=== PATIENT | female | born 1970 | race Caucasian/White ===

== ENCOUNTER → 2017-04-11 13:25 | Outpatient (POV) | payer OTHER, SELFPAY | PROVIDERS: Visit Provider Nurse Practitioner Acute Care | DX: Z00.00 Encounter for general adult medical examination without abnormal findings (principal) ==

== ENCOUNTER → 2017-08-15 13:10 | Outpatient (POV) | payer OTHER, SELFPAY | PROVIDERS: Visit Provider Nurse Practitioner Acute Care | DX: Z00.00 Encounter for general adult medical examination without abnormal findings (principal) ==

== ENCOUNTER → 2017-11-07 09:05 | Outpatient (POV) | payer OTHER, SELFPAY | PROVIDERS: Visit Provider Nurse Practitioner Acute Care | DX: Z00.00 Encounter for general adult medical examination without abnormal findings (principal) ==

== ENCOUNTER → 2018-11-08 08:39 | Outpatient (CLI) | payer OTHER, SELFPAY ==
--- NOTE | 2018-11-08 08:49 | US_ITS ---
PROCEDURE: US ABDOMEN LIMITED CLINICAL INDICATION: FUNCTIONAL DYSPEPSIA, POLYPS ON GB Nausea COMPARISON: RUQ US RUQ-(ABD WILLIAM)1ORGAN/QUAD/FU from 07/18/2012 FINDINGS: PANCREAS: Unremarkable. No obvious mass or abnormal fluid collection. No ductal dilatation LIVER: No focal liver lesions demonstrated. Homogeneous echogenicity. No intrahepatic biliary ductal dilatation evident. There is appropriate direction of blood flow within a non dilated portal vein RIGHT KIDNEY: Unremarkable. Normal size and echogenicity. No hydronephrosis GALLBLADDER: Are 2 small polyps along posterior wall the gallbladder measuring 3 mm each. No gallbladder wall thickening, pericholecystic fluid, or biliary dilatation is evident. Common bile duct is normal at 3 mm. Scattered small echogenic foci present in the gallbladder likely due to concentrated bile or small amount of sludge. No shadowing stones. IMPRESSION: 1. Small gallbladder polyps with a small amount of sludge. 2. Otherwise negative right upper quadrant ultrasound. No shadowing stones Dictated by: Brice Ibrahim MD 11/08/2018 10:00 Signed by: <Electronically signed by Brice Ibrahim MD in [place]> 11/08/2018 10:00
== END ==
PROVIDERS: PCP Family Medicine; Visit Provider Internal Medicine Gastroenterology
DX: K30 Functional dyspepsia (principal); K82.4 Cholesterolosis of gallbladder
CPT/HCPCS: 76705

== ENCOUNTER → 2019-02-01 14:30 | Outpatient (CLI) | payer OTHER, SELFPAY ==
--- NOTE | 2019-02-01 14:34 | XR_ITS ---
PROCEDURE: XR CERVICAL SPINE 5V CLINICAL INDICATION: NECK PAIN COMPARISON: No exams were available for comparison FINDINGS: Normal alignment. There are mild osteoarthritic changes at C5-6. No fracture or dislocation. No lytic or blastic change. There is mild left foraminal narrowing at C5-C6. No evidence of cervical rib. IMPRESSION: Mild degenerative changes Dictated by: Brice Ibrahim MD 02/01/2019 15:45 Electronically signed by Brice Ibrahim MD in [place] 02/01/2019 15:45
== END ==
PROVIDERS: PCP Family Medicine; Visit Provider Nurse Practitioner Family
DX: M54.2 Cervicalgia (principal)
CPT/HCPCS: 72050

== ENCOUNTER → 2019-02-05 10:54 | Outpatient (POV) | payer OTHER, SELFPAY | PROVIDERS: PCP Family Medicine; Visit Provider Nurse Practitioner Family | DX: Z00.00 Encounter for general adult medical examination without abnormal findings (principal) ==

== ENCOUNTER 2020-04-03 13:09 | Emergency (ER) | payer OTHER, SELFPAY ==
[2020-04-03 13:15] VITALS: BP 108/74; PULSE 77; RESP 20; TEMP 36.6; O2SAT 100; BMI 24.7
--- NOTE | 2020-04-03 13:44 | HMH.EDUTC ---
[facility] [place] Disposition Clinical Impression: Exposure to COVID-19 virus Disposition: Home, Self-Care Condition on Discharge: Good Instructions: Coronavirus Disease 2019, Preventing the Spread of Coronavirus Discharge Instructions Additional Instructions: Drink plenty of fluids. Take tylenol for pain or fever. Return if you begin to have difficulty breathing. Follow up with your regular doctor. GO TO THE ER FOR ANY WORSENING SYMPTOMS Prescriptions: Ondansetron [Zofran 4mg ODT] 4 mg PO Q8HP PRN #12 tab.rapdis PRN Reason: Nausea Transmission Status: Received by [facility] #[id number] Referrals: Linda Mae MD [Primary Care Provider] - Time of Disposition: 13:49 Medical Decision Making - Medical Records Medical records reviewed: No: I reviewed the patient's medical records. - Mike Inquiry Pt receiving controlled substance: No Vital Signs: 04/03/20 13:15 04/03/20 13:54 Temperature 97.9 F 97.9 F Temperature Source Temporal Artery Scan Pulse Rate 77 Pulse Rate [Right Brachial] 77 Respiratory Rate 20 20 Blood Pressure 108/74 L Blood Pressure [Right Arm] 108/74 L Blood Pressure Mean [Right Arm] 85 Blood Pressure Source [Right Arm] Automatic Cuff Blood Pressure Position [Right Arm] Sitting 02 Sat by Pulse Oximetry 100 Oxygen Delivery Method Room Air Orders (Tests/Meds): ORDERS Category Date Time Status Covid-19 Nasal PCR Sendout P&C Routine Lab 04/03/20 13:25 Received [facility] HPI - General Stated complaint: covid exposure Time Seen by Provider: 04/03/20 13:44 Mode of Arrival: Ambulatory Source of Information: Patient Limitations: No Limitations Description of Symptoms (Recalled from Triage Doc. by RN): COVID TEST D/T EXPOSURE. C/O SINUS DRAINAGE (SHE DOES HAVE SEASONAL ALLERGIES) HEENT Symptoms (Recalled from RN notes): No Resp Symptoms (Recalled from RN notes): No Skin Symptoms (Recalled from RN notes): No MS Symptoms (Recalled from RN notes): No Functional Status (Recalled from RN notes): WNL - History of Present Illness Provider Complaint: She states that for the past 2 days she has had increased sinus drainage. Her currently has covid. - Related Data Previous Rx's Medication Instructions Recorded clindamycin HCL [Clindamycin HCl 300 mg PO Q8 #30 cap 09/26/18 300mg Cap] Ondansetron [Zofran 4mg ODT] 4 mg PO Q8HP PRN #12 tab.rapdis 04/03/20 Allergies Allergy/AdvReac Type Severity Reaction Status Date / Time morphine [MORPHINE] Allergy Unknown Verified 09/26/18 22:05 - Worker's Comp Is this a Worker's Comp case?: No [facility] History - Hepatitis A Screen Drug use history?: No High risk sexual behaviors?: No History of sexually transmitted infection?: No Currently employed?: No Childcare worker?: No Do you have indoor plumbing?: Yes Do you have electricity?: Yes Attestation statement:: This patient has been screened for Hepatitis A risk factors. I have reviewed the patient's past medical history: Yes Medical History: Denies:: Asthma, Coronary Artery Disease, Diabetes Mellitus Type 1, Diabetes Mellitus Type 2 Amputation: No - Social History Smoking Status: Never smoker Alcohol Intake: never Occupational Status: employed ROS Obtained: Yes All systems reviewed & no additional complaints - Constitutional Constitutional: Reports system reviewed and no additional complaints, except as docu - Eyes Eyes: Reports system reviewed and no additional complaints, except as docu - ENT Ears, Nose, Mouth, and Throat: Reports system reviewed and no additional complaints, except as docu - Cardiovascular Cardiovascular: Reports system reviewed and no additional complaints, except as docu - Respiratory Respiratory: Reports system reviewed and no additional complaints, except as docu - Gastrointestinal Gastrointestingal: Reports: system reviewed and no additional complaints, except as docu Physical Exam - G
[2020-04-03 13:54] VITALS: BP 108/74; PULSE 77; RESP 20; TEMP 36.6; O2SAT 100
[2020-04-04 09:50] LABS: Covid-19 Nasal PCR Sendout P&C POSITIVE
--- NOTE | 2020-04-04 12:58 | PC.NURSE ---
PT NOTIFIED OF COVID RESULTS
== END 2020-04-03 13:56 | disposition home or self-care (01) ==
PROVIDERS: Emergency Provider Nurse Practitioner Family; PCP Family Medicine
DX: U07.1 COVID-19 (principal)
CPT/HCPCS: 99202; G0463; U0004

== ENCOUNTER → 2020-06-20 09:46 | Outpatient (CLI) | payer OTHER, SELFPAY ==
--- NOTE | 2020-06-20 09:49 | US_ITS ---
PROCEDURE: US THYROID CLINICAL INDICATION: THYROID NODULE Enlarged and heterogeneous COMPARISON: No exams were available for comparison FINDINGS: Right lobe: 1.3cm x 4.2cm x 1.6cm Left lobe: 1.4cm x 4.4cm x 1.9cm Isthmus: The isthmus is thickened 5 mm Additional findings: There is heterogeneous echogenicity of the thyroid gland. No discrete nodule however is evident. IMPRESSION: Heterogeneous echogenicity of the thyroid gland without discrete nodule. Mild thickening of the isthmus. Dictated by: Brice Ibrahim MD 06/21/2020 13:00 Brice Ibrahim MD in [place] 06/21/2020 13:00
== END ==
PROVIDERS: PCP Family Medicine; Visit Provider Family Medicine
DX: E04.1 Nontoxic single thyroid nodule (principal)
CPT/HCPCS: 76536

== ENCOUNTER → 2020-06-25 09:27 | Outpatient (CLI) | payer OTHER, SELFPAY ==
--- NOTE | 2020-06-25 09:30 | MR_ITS ---
PROCEDURE: MR HEAD/BRAIN WO/W CON CLINICAL INDICATION: PERIODIC HEADACHE SYNDROME Pt states hx of migraine headaches that have gotten worse with new symptoms x1yr. New symptoms during headaches. Off balance and bilateral hand tingling. COMPARISON: No exams were available for comparison TECHNIQUE: Routine multiplanar multi echo sequences are performed without and with gadolinium enhancement. FINDINGS: No midline shift, mass effect, intracranial hemorrhage, or hydrocephalus is evident. The cerebellopontine angles cerebellum and brainstem have an unremarkable appearance. No evidence of acute infarction. No enhancing lesions. There are a few small T2 white matter hyperintensities which are nonspecific. These do not enhance and do not demonstrate restricted diffusion. The pituitary, optic chiasm, corpus callosum, and craniocervical junction have an unremarkable appearance. No mastoid effusion or sinus air-fluid level. IMPRESSION: 1. No acute intracranial findings. 2. There are a few small T2 white matter hyperintensities. These are nonspecific and may be seen with small ischemic gliotic foci from microvascular changes or migraine headache. Demyelinating would be included in the differential diagnosis but felt to be less likely due to imaging characteristics. Dictated by: Brice Ibrahim MD 06/26/2020 14:17 Brice Ibrahim MD in [place] 06/26/2020 14:17
== END ==
PROVIDERS: PCP Family Medicine; Visit Provider Family Medicine
DX: G43.C0 Periodic headache syndromes in child or adult, not intractable (principal)
CPT/HCPCS: 70553; A9576

== ENCOUNTER → 2020-08-25 14:00 | Outpatient (CLI) | payer OTHER, SELFPAY | PROVIDERS: PCP Family Medicine; Visit Provider Nurse Practitioner Family | DX: G47.30 Sleep apnea, unspecified (principal); G47.00 Insomnia, unspecified; G47.19 Other hypersomnia; F45.8 Other somatoform disorders | CPT/HCPCS: 95806 ==

== ENCOUNTER → 2020-09-23 14:44 | Outpatient (CLI) | payer OTHER, SELFPAY | PROVIDERS: Visit Provider Specialist | DX: Z01.812 Encounter for preprocedural laboratory examination (principal); Z11.52 Encounter for screening for COVID-19; G47.30 Sleep apnea, unspecified | CPT/HCPCS: U0003 ==

== ENCOUNTER → 2020-09-24 20:16 | Outpatient (CLI) | payer OTHER, SELFPAY | PROVIDERS: PCP Family Medicine; Visit Provider Specialist | DX: G47.30 Sleep apnea, unspecified (principal); R06.83 Snoring | CPT/HCPCS: 95810 ==

== ENCOUNTER → 2020-11-05 10:49 | Outpatient (CLI) | payer OTHER, SELFPAY ==
--- NOTE | 2020-11-05 10:52 | XR_ITS ---
PROCEDURE: XR CERVICAL SPINE 2V CLINICAL INDICATION: NECK PAIN COMPARISON: CR XR CERVICAL SPINE 5V from 02/01/2019 FINDINGS: No fracture or dislocation. No lytic or blastic change. There is normal mineralization. Good alignment. Mild degenerative disc disease is present at C5-C6 and C6-C7 with slight decrease in the disc spaces at these levels which has developed since the previous exam. Minimal foraminal narrowing noted bilaterally at C5-C6 and C6-C7. No cervical rib. Other findings:There is straightening/reversal of the normal lordosis which may be due to patient positioning or muscle spasm. IMPRESSION: Cervical spondylosis at C5-C6 and C6-C7 as described above Dictated by: Brice Ibrahim MD 11/05/2020 12:35 Brice Ibrahim MD in [place] 11/05/2020 12:36
== END ==
PROVIDERS: PCP Family Medicine; Visit Provider Physician Assistant
DX: M54.2 Cervicalgia (principal)
CPT/HCPCS: 72040

== ENCOUNTER → 2020-11-14 20:19 | Outpatient (CLI) | payer OTHER, SELFPAY ==
[2020-11-14 20:24] LABS: Adenovirus,PCR Not Detected (NotDetected); Bordetella Pertussis Not Detected (NotDetected); Chlamydophila Pneumoniae, PCR Not Detected (NotDetected); Coronavirus 19, PCR Not Detected (NotDetected); Coronavirus 229E Not Detected (NotDetected); Coronavirus NL63 Not Detected (NotDetected); Coronavirus OC43 Not Detected (NotDetected); Coronovirus HKU1,PCR Not Detected (NotDetected); Human Metapneumovirus Not Detected (NotDetected); Influenza A, PCR Not Detected (NotDetected); Influenza AH1, 2009 Not Detected (NotDetected); Influenza AH1, PCR Not Detected (NotDetected); Influenza AH3,PCR Not Detected (NotDetected); Influenza B, PCR Not Detected (NotDetected); Mycoplasma Pneumoniae, PCR Not Detected (NotDetected); Parainfluenza 1, PCR Not Detected (NotDetected); Parainfluenza 2, PCR Not Detected (NotDetected); Parainfluenza 3, PCR Not Detected (NotDetected); Parainfluenza 4, PCR Not Detected (NotDetected); Respiratory Syncytial Virus Not Detected (NotDetected); Rhinovirus/Enterovirus Not Detected (NotDetected)
== END ==
PROVIDERS: Visit Provider Nurse Practitioner Family
DX: Z20.822 Contact with and (suspected) exposure to COVID-19 (principal)
CPT/HCPCS: 87581; 87633; 87798

== ENCOUNTER → 2020-12-05 09:31 | Outpatient (CLI) | payer OTHER, SELFPAY | PROVIDERS: PCP Family Medicine; Visit Provider Nurse Practitioner Family | DX: G47.50 Parasomnia, unspecified (principal); G47.00 Insomnia, unspecified | CPT/HCPCS: 95819 ==

== ENCOUNTER 2020-12-09 13:00 | Outpatient (RCR) | payer OTHER, SELFPAY ==
--- NOTE | 2020-11-11 09:39 | HMH.PTOPEV ---
PT Outpatient Evaluation Rehab PT Outpatient Evaluation Start: 11/11/20 08:55 Freq: Status: Active Protocol: Document 11/11/20 09:20 ALLA (Rec: 11/11/20 09:38 ALLA [id number]) Electronically Signed By Sandoval Galvan, PT 11/11/20 09:20 Outpatient Therapy Subjective History Subjective History Pt reports h/o chronic neck pain and bilateral shoulder blade/thoracic area mm pain since September. Pt reports right sided scapula area mm pain, left sided UT mm/SH pain w/mm soreness, as well as left UE N &T to hand. REcent Xray has revealed DDD @C5-6,C6-7. Chief Complaint Pain,Spasms,Paresthesia, Weakness Symptom Type Ache,Sharp,Dull,Stabbing, Numbness,Tingling Symptoms Relieved By Rest/Positioning,Prescription Meds Symptoms Aggravated By Physical Activity,Lifting Prior Functional Limitations Reaching,Lifting,Housework Current Functional Limitations Reaching,Lifting,Housework Symptom Description Constant but Variable Level of pain today (0-10) 5 Pain scale - at its best (0-10) 4 Pain scale - at its worst (0-10) 10 Cervical Eval Palpation Cervical Muscles R Cervical Paraspinal,L Cervical Paraspinal,R Suboccipital,L Suboccipital,R CT Junction,L CT Junction,R Upper Trapezius,L Upper Trapezius,R Thoracic Paraspinals,L Thoracic Paraspinals Cervical/Thoracic Palpation Findings Tenderness,Trigger Point Posture Head/C-Spine Posture Sitting Position Neutral Position Head/C-Spine Posture Standing Position Neutral Position Flexibility Deficits Upper Trapezius Muscle Length (R) Moderate Tightness,(L) Moderate Tightness Levaetor Scapulae Muscle Length (R) Mild Tightness,(L) Mild Tightness Scalene Group Muscle Length (R) Moderate Tightness,(L) Moderate Tightness Passive Joint Mobility Cervical PIVM WNL: R OA L OA R AA L AA R C2/3 L C2/3 R C3/4 L C3/4 R C4/5 L
== END 2020-12-09 13:05 | disposition home or self-care (01) ==
LOC: PT 13:00
PROVIDERS: PCP Family Medicine; Visit Provider Physician Assistant
DX: M54.2 Cervicalgia (principal); M79.602 Pain in left arm; R20.2 Paresthesia of skin; M62.838 Other muscle spasm
CPT/HCPCS: 20560; 97010; 97012; 97014; 97035; 97110; 97140; 97163; G0283

== ENCOUNTER → 2020-12-18 16:41 | Outpatient (CLI) | payer OTHER, SELFPAY ==
--- NOTE | 2020-12-18 16:44 | MR_ITS ---
PROCEDURE INFORMATION: Exam: MR Cervical Spine Without Contrast Exam date and time: 12/18/2020 4:44 PM Age: 50 years old Clinical indication: Neck pain; Additional info: Cervical radiculopathy TECHNIQUE: Imaging protocol: Multiplanar magnetic resonance images of the cervical spine without contrast. COMPARISON: CR XR CERVICAL SPINE 2V 11/05/2020 10:59 AM FINDINGS: Vertebrae: Normal alignment. Normal marrow signal. Multilevel facet osteoarthritis. Spinal cord: Normal signal. No cord compression. No syrinx or mass. C2-C3: Small midline posterior disc protrusion causing mild central spinal stenosis. No significant foraminal stenosis. C3-C4: Small midline posterior disc protrusion and 5 mm subligamentous disc herniation extending superiorly from the disc space. Mild spinal stenosis with mild mass effect on the ventral cord surface. No cord compression or signal changes. No significant foraminal stenosis. C4-C5: Borderline central spinal stenosis. No disc herniation. No foraminal stenosis. C5-C6: Disc degeneration with disc space narrowing and broad based posterior disc bulge. Mild central spinal stenosis. Mild bilateral foraminal stenosis. C6-C7: Disc degeneration with disc space narrowing and broad based posterior disc bulge. Mild central spinal stenosis. Moderate-severe left foraminal stenosis. Milder right foraminal stenosis. C7-T1: No disc herniation or spinal stenosis. No significant foraminal stenosis. Soft tissues: Unremarkable. Vertebral arteries: Expected flow voids in the vertebral arteries. IMPRESSION: 1. Discogenic degenerative changes causing mild central spinal stenosis from C2-C3 to C6-C7. No cord compression or signal changes. 2. Small posterior disc bulge with 5 mm midline subligamentous disc herniation at C3-C4. 3. Moderate-severe left C6-C7 foraminal stenosis. Mild foraminal stenoses at C5-C6.
== END ==
PROVIDERS: PCP Family Medicine; Visit Provider Family Medicine
DX: M54.12 Radiculopathy, cervical region (principal)
CPT/HCPCS: 72141; 76376

== ENCOUNTER → 2021-03-16 12:29 | Outpatient (CLI) | payer OTHER, SELFPAY ==
[2021-03-16 14:15] LABS: Adenovirus,PCR Not Detected (NotDetected); Bordetella Pertussis Not Detected (NotDetected); Chlamydophila Pneumoniae, PCR Not Detected (NotDetected); Coronavirus 19, PCR Not Detected (NotDetected); Coronavirus 229E Not Detected (NotDetected); Coronavirus NL63 Not Detected (NotDetected); Coronavirus OC43 Not Detected (NotDetected); Coronovirus HKU1,PCR Not Detected (NotDetected); Influenza A, PCR Not Detected (NotDetected); Influenza AH1, 2009 Not Detected (NotDetected); Influenza AH1, PCR Not Detected (NotDetected); Influenza AH3,PCR Not Detected (NotDetected); Influenza B, PCR Not Detected (NotDetected); Mycoplasma Pneumoniae, PCR Not Detected (NotDetected); Parainfluenza 1, PCR Not Detected (NotDetected); Parainfluenza 2, PCR Not Detected (NotDetected); Parainfluenza 3, PCR Not Detected (NotDetected); Parainfluenza 4, PCR Not Detected (NotDetected); Respiratory Syncytial Virus Not Detected (NotDetected); Rhinovirus/Enterovirus Not Detected (NotDetected)
[2021-03-16 14:28] LABS: Basophils # 0.3 K/mm3 (0-0.2); Basophils % 3.6 % (0.1-2.0); Eosinophils # 0.1 K/mm3 (0.0-0.4); Eosinophils % 1.9 % (0.1-12.0); Hematocrit 42.8 % (37.0-47.0); Hemoglobin 13.7 g/dL (12.2-16.2); Lymphocytes # 1.6 K/mm3 (0.7-4.5); Lymphocytes % 23.7 % (10-50); Mean Corpuscular Hemoglobin 31.3 pg (27.0-31.2); Mean Corpuscular Volume 97.8 fl (81-99); Mean Platelet Volume 8.1 fl (7.4-10.4); Monocytes # 0.6 K/mm3 (0.1-1.0); Monocytes % 9.2 % (1.7-9.3); Neutrophils # 4.3 K/mm3 (1.8-7.8); Neutrophils % 61.7 % (37.0-80.0); Platelet Count 270 K/mm3 (142-424); Red Blood Count 4.38 M/mm3 (4.20-5.40); Red Cell Distribution Width 13.4 % (11.5-17.5)
[2021-03-16 17:38] LABS: Human Metapneumovirus Detected (NotDetected)
== END ==
PROVIDERS: PCP Family Medicine; Visit Provider Nurse Practitioner Family
DX: Z20.822 Contact with and (suspected) exposure to COVID-19 (principal); B97.81 Human metapneumovirus as the cause of diseases classified elsewhere
CPT/HCPCS: 36415; 85025; 87581; 87632; 87798; C9803; U0003; U0005

== ENCOUNTER → 2021-05-21 07:21 | Outpatient (CLI) | payer SELFPAY ==
--- NOTE | 2021-05-21 07:26 | CT_ITS ---
FINAL REPORT TECHNIQUE: Limited imaging of the chest was obtained for coronary artery calcium scoring. CLINICAL HISTORY: 5foot 127lbs FINDINGS: Patient's total coronary artery calcium score is 0. No visualized calcification is seen. This places the patient in the 0 percentile range for age and gender match cohort. Review of the remainder of the thorax demonstrates no pulmonary mass or adenopathy. No suspicious pulmonary vascular nodule is seen. IMPRESSION: Coronary artery calcium score of 0. Reviewed, Interpreted and Dictated by Manuel Astudillo III, MD Transcribed by Shira Saab Authenticated by Manuel Astudillo III, MD on 05/21/2021 02:06:05 PM [facility]
== END ==
PROVIDERS: PCP Family Medicine; Visit Provider Internal Medicine Cardiovascular Disease
DX: Z13.6 Encounter for screening for cardiovascular disorders (principal)
CPT/HCPCS: 75571

== ENCOUNTER → 2021-05-26 13:40 | Outpatient (CLI) | payer OTHER, SELFPAY ==
--- NOTE | 2021-05-26 13:40 | CA_ITS ---
APPROVED REPORT EXAM: Comprehensive 2D, Doppler, and color-flow Echocardiogram [employer]: Louise Shaikh RT(R) Ht: 5 ft 0 in Wt: 127lbs BSA: 1.54 BP: 117/73 mmHg Indications: Tachycardia, Palpitations, Abn EKG, dizziness 2D Dimensions Aortic Root 1.92 cm F: 2.7 - 3.3 LVEF (Cardona's) 59.70 % F: 54 - 74 LV Volume 75.60 mL F: 46 - 106 LV Volume Index 49.09 mL/m2 F: 29 - 61 LA Volume 22.60 mL LA Volume Index 14.67 mL/m2 (M/F) 16-34 M-Mode Dimensions RVDd 2.81 cm (0.9-2.6) LA Diam 2.92 cm (1.9-4.0) LVDd 3.50 cm (3.5-5.7) Ao Diam 2.45 cm (2.0-3.7) LVDs 2.87 cm (3.5-5.7) IVSd 0.56 cm (0.6-1.1) PWd 0.62 cm (0.6-1.1) EF (Teich) 38.30% FS 18.00% EDV (Teich) 50.90 mL ESV (Teich) 31.40 mL LV Diastology E Decel Time 203.00 (160-240 msec) E/A Ratio 1.4 MED E' 9.70 (< 7 cm/sec) E'/MED E' Ratio 7.84 (>14) LAT E' 13.70 (<10 cm/sec) E/LAT E' Ratio 5.55 (>14) Mitral Valve MV E Max Joaquin. 76.00 (40-130 cm/s) MV A Velocity 53.00 (40-130 cm/s) E/A Ratio 1.44 MV Decel. Time 203.00 (160-240 ms) MV PHT 60.00 ms Tricuspid Valve TR P. Velocity 231.00 cm/s RAP Estimate 10.00 mmHg RVSP 31.40 mmHg Left Ventricle Left atrium is normal size, left ventricle is normal size, there is no concentric left ventricular hypertrophy, visually estimated ejection fraction 55% with no regional wall motion abnormality, diastolic parameters are within normal range. Right Ventricle Right atrium and right ventricle are normal size and contractility. Aortic Valve Aortic valve is minimally thickened and fibrosed, there is no aortic stenosis or aortic insufficiency. Mitral Valve Mitral valve structurally normal, there is trace mitral regurgitation. Tricuspid Valve Tricuspid grossly normal, there is trace tricuspid regurgitation, calculated right ventricular systolic pressure 30 mmHg. Pulmonic Valve Pulmonic valve is poorly visualized. Great Vessels Aortic root is normal size. Inferior vena cava normal size with normal inspiratory collapse. Pericardium No significant pericardial effusion. Conclusion 1. Normal left ventricular size, preserved left ventricular systolic function, visually estimated ejection fraction 55% with no regional wall motion abnormality, diastolic parameters are within normal range. 2. Trace mitral and tricuspid regurgitation. Calculated right ventricular systolic pressure 30 mmHg. 3. No significant pericardial effusion noted. 4. Inferior vena cava normal size with normal inspiratory collapse. Electronically signed by : Sree Lima MD 05/26/2021 19:14:24
== END ==
PROVIDERS: PCP Family Medicine; Visit Provider Nurse Practitioner Family
DX: R42 Dizziness and giddiness (principal); R00.0 Tachycardia, unspecified; R00.2 Palpitations; R40.0 Somnolence; R94.31 Abnormal electrocardiogram [ECG] [EKG]
CPT/HCPCS: 93306

== ENCOUNTER 2024-06-27 14:16 | Outpatient (CLI) | payer OTHER, SELFPAY ==
[2024-06-27 14:22] LABS: Coronavirus 19, PCR Not Detected (NotDetected); Influenza A, PCR Not Detected (NotDetected); Influenza B, PCR Not Detected (NotDetected)
== END 2024-06-27 23:59 | disposition home or self-care (01) ==
LOC: LAB 14:16
PROVIDERS: PCP Family Medicine; Visit Provider Physician Assistant
DX: J06.9 Acute upper respiratory infection, unspecified (principal)
CPT/HCPCS: 36415; 87636